=== PATIENT | female | born 1985 | race Hispanic/Latino ===

== ENCOUNTER 2022-09-21 09:50 | Emergency (ER) | payer OTHER ==
[~2022-09-21] VITALS: Ht 154.9 cm; Wt 113.4 kg
[2022-09-21] MEDS ORDERED: ONDANSETRON ODT 4MG TAB SL ONE (11:30)
[2022-09-21] MEDS ORDERED: ACETAMINOPHEN WITH CODEINE 1 TAB TAB PO ONE (11:30)
[2022-09-21] MEDS ORDERED: ONDA4TAB10 PO (12:11)
[2022-09-21 12:35] VITALS: BP 144/78
== END 2022-09-21 12:34 | disposition home or self-care (01) ==
LOC: EDH 09:50
DX: J06.9 Acute upper respiratory infection, unspecified (principal); R11.0 Nausea; R50.9 Fever, unspecified; M79.10 Myalgia, unspecified site; Z20.822 Contact with and (suspected) exposure to COVID-19; Z98.890 Other specified postprocedural states
CPT/HCPCS: 99283; 87635; 87880; 87804 ×2; C9803

== ENCOUNTER 2023-07-30 17:41 | Inpatient (IN) | payer OTHER ==
[~2023-07-30] VITALS: Ht 154.9 cm; Wt 103.2 kg
[~2023-07-30 17:41] MED LIST: ONDA4TAB10 PO
[2023-07-30 18:56] LABS: BASOPHILS # (AUTO) 0.03 K/uL (0.00-0.20); BASOPHILS % (AUTO) 0.2 % (0.0-5.0); EOSINOPHILS # (AUTO) 0.03 K/uL (0.00-0.70); EOSINOPHILS % (AUTO) 0.2 % (0.0-8.0); HEMATOCRIT 43.2 % (36-48); IMMATURE GRANULOCYTE ABSOLUTE 0.04 K/uL (0-1); LYMPHOCYTES # (AUTO) 1.3 K/uL (1.0-4.8); LYMPHOCYTES % (AUTO) 9.4 % (21.0-51.0); MEAN CORPUSCULAR HEMOGLOBIN 30.6 pg (27.0-33.0); MEAN CORPUSCULAR VOLUME 89.8 fL (79-99); MONOCYTES # (AUTO) 0.8 K/uL (0.1-1.0); MONOCYTES % (AUTO) 5.6 % (3.0-13.0); NEUTROPHILS # (AUTO) 11.8 K/uL (1.8-7.7); NEUTROPHILS % (AUTO) 84.3 % (40.0-77.0); PLATELET COUNT (AUTO) 250 K/uL (130-400); RED BLOOD CELL COUNT(AUTO) 4.81 MIL/uL (4.00-5.50); RED CELL DISTRIBUTION WIDTH 13.1 % (11.0-15.5)
[2023-07-30 19:08] LABS: CREATININE 0.6 mg/dL (0.5-1.0); POTASSIUM 3.8 mmol/L (3.5-5.1)
[2023-07-30 19:12] LABS: ALBUMIN 3.3 g/dL (3.5-5.0); TOTAL PROTEIN, SERUM 7.4 g/dL (6.0-8.3)
[2023-07-30 19:22] LABS: INR <= 0.93 (0.85-1.15); PROTHROMBIN TIME 10.8 SEC (9.6-11.6)
[2023-07-30 19:23] LABS: PARTIAL THROMBOPLASTIN TIME 29.5 SEC (26.3-35.5)
[2023-07-31] MEDS ORDERED: MORPHINE 4 MG SYG IV PRN
[2023-07-31] MEDS ORDERED: DIPHENHYDRAMINE HCL 25 MG CAPSULE PO PRN
[2023-07-31] MEDS ORDERED: GUAIFENESIN-DM 200/20 MG 10 ML PO PRN
[2023-07-31] MEDS ORDERED: ACETAMINOPHEN 325 MG TAB PO PRN
[2023-07-31] MEDS ORDERED: ONDANSETRON 4MG INJ IV PRN
[2023-07-31] MEDS ORDERED: NITROGLYCERIN 0.4 MG SL TAB SL PRN
[2023-07-31] MEDS: METRONIDAZOLE 500MG/100ML BAG IV SCH (01:23)
[2023-07-31] MEDS: MORPHINE 2 MG SYG IVP ONE (01:23)
[2023-07-31] MEDS: 0.9%NACL 1000ML 1,000 ML IV SCH (01:23)
[2023-07-31] MEDS: ONDANSETRON 4MG INJ IVP ONE (01:24)
[2023-07-31] MEDS: LEVOFLOXACIN 500 MG/D5W 100 ML 100 ML IV SCH (02:49)
[2023-07-31] MEDS: MORPHINE 2 MG SYG IV PRN (06:05)
[2023-07-31] MEDS: FAMOTIDINE 20MG VIAL IV SCH (09:05)
[2023-07-31 09:30] VITALS: BP 123/69; PULSE 73; RESP 20
[2023-07-31] MEDS ORDERED: DICY20TA3 PO (09:40)
[2023-07-31] MEDS ORDERED: NAPR-1141 PO (09:40)
[2023-07-31] MEDS ORDERED: OMEP40CA21 PO (09:40)
[2023-07-31] MEDS ORDERED: METR-172 PO (09:40)
[2023-07-31 10:15] LABS: BASOPHILS # (AUTO) 0.02 K/uL (0.00-0.20); BASOPHILS % (AUTO) 0.2 % (0.0-5.0); EOSINOPHILS % (AUTO) 0.9 % (0.0-8.0); HEMATOCRIT 34.7 % (36-48); IMMATURE GRANULOCYTE ABSOLUTE 0.04 K/uL (0-1); LYMPHOCYTES # (AUTO) 1.7 K/uL (1.0-4.8); LYMPHOCYTES % (AUTO) 15.8 % (21.0-51.0); MEAN CORPUSCULAR HEMOGLOBIN 29.9 pg (27.0-33.0); MEAN CORPUSCULAR VOLUME 88.1 fL (79-99); MONOCYTES # (AUTO) 0.8 K/uL (0.1-1.0); MONOCYTES % (AUTO) 7.3 % (3.0-13.0); NEUTROPHILS # (AUTO) 8.3 K/uL (1.8-7.7); NEUTROPHILS % (AUTO) 75.4 % (40.0-77.0); PLATELET COUNT (AUTO) 184 K/uL (130-400); RED BLOOD CELL COUNT(AUTO) 3.94 MIL/uL (4.00-5.50); RED CELL DISTRIBUTION WIDTH 13.2 % (11.0-15.5)
[2023-07-31 10:25] LABS: ALBUMIN 2.5 g/dL (3.5-5.0); BILIRUBIN,TOTAL 1.1 mg/dL (0.2-1.0); CREATININE 0.6 mg/dL (0.5-1.0); POTASSIUM 3.6 mmol/L (3.5-5.1); TOTAL PROTEIN, SERUM 6.1 g/dL (6.0-8.3)
[2023-07-31 11:29] VITALS: BP 112/59; PULSE 67; RESP 18
[2023-07-31 11:41] LABS: ERYTHROCYTE SEDIMENTATION RATE 47 MM/HR (0-20)
[2023-07-31 12:24] LABS: ADD UA MICROSCOPIC YES; APPEARANCE,URINE CLEAR (CLEAR); BILIRUBIN,URINE NEGATIVE (NEGATIVE); COLOR,URINE YELLOW (YELLOW); GLUCOSE, URINE (UA) NEGATIVE (NEGATIVE); KETONES,URINE NEGATIVE (NEGATIVE); LEUKOCYTE ESTERASE ,URINE 75 Leu/uL (NEGATIVE); NITRATE,URINE NEGATIVE (NEGATIVE); OCCULT BLOOD,URINE LARGE (NEGATIVE); PROTEIN,URINE NEGATIVE (NEGATIVE); UROBILINOGEN,URINE 0.2 mg/dL (0.2-1.0)
[2023-07-31 12:27] LABS: HCG,QUALITATIVE URINE NEGATIVE (NEGATIVE)
[2023-07-31 12:32] LABS: MUCUS,URINE Few LPF (None Seen); SQUAMOUS EPITHELIAL CELL,UR Few /HPF (0-2)
[2023-07-31 12:34] LABS: BACTERIA,URINE Few /HPF (None Seen)
[2023-07-31 16:00] VITALS: BP 151/85; PULSE 79; RESP 18
[2023-07-31 19:00] VITALS: BP 122/63; PULSE 65; RESP 16
[2023-07-31 23:00] VITALS: BP 105/58; PULSE 81; RESP 14
[2023-08-01 03:00] VITALS: BP 114/49; PULSE 85; RESP 14
[2023-08-01] MEDS: MAG/ALUM/SIMETH 30 ML UDCUP PO PRN (05:30)
[2023-08-01 05:47] LABS: MEAN CORPUSCULAR HEMOGLOBIN 30.6 pg (27.0-33.0); MEAN CORPUSCULAR HGB CONC 33.7 g/dL (32.0-36.0); MEAN CORPUSCULAR VOLUME 90.9 fL (79-99); RED BLOOD CELL COUNT(AUTO) 3.85 MIL/uL (4.00-5.50); RED CELL DISTRIBUTION WIDTH 12.8 % (11.0-15.5); WHITE BLOOD COUNT (AUTO) 10.9 K/uL (4.8-10.8)
[2023-08-01 05:59] LABS: ALBUMIN 2.2 g/dL (3.5-5.0); BILIRUBIN,TOTAL 0.8 mg/dL (0.2-1.0); CREATININE 0.5 mg/dL (0.5-1.0); POTASSIUM 3.2 mmol/L (3.5-5.1); TOTAL PROTEIN, SERUM 5.8 g/dL (6.0-8.3)
[2023-08-01 08:00] VITALS: BP 138/86; PULSE 80; RESP 19; O2SAT 96
[2023-08-01] MEDS: POTASSIUM CHLORIDE 10MEQ/100ML 100 ML IV PRN (08:48)
[2023-08-01 12:00] VITALS: BP 98/60; PULSE 73; RESP 19
[2023-08-01 16:00] VITALS: BP 137/67; PULSE 69; RESP 19
[2023-08-01 20:00] VITALS: BP 136/73; PULSE 77; RESP 20; O2SAT 100
[2023-08-01] MEDS ORDERED: POTASSIUM CHLORIDE 10% ELIXIR 20 MEQ/15 ML UDCUP PO PRN (22:30)
[2023-08-02] VITALS: BP 105/46; PULSE 79; RESP 18
[2023-08-02 04:00] VITALS: BP 125/71; PULSE 71; RESP 19
[2023-08-02 04:22] LABS: MAGNESIUM 1.6 mg/dL (1.80-2.40); POTASSIUM 3.5 mmol/L (3.5-5.1)
[2023-08-02] MEDS: KCL 20 MEQ ERTAB PO PRN (05:26)
[2023-08-02] MEDS: MAGNESIUM 2GM PREMIX 50ML 50 ML IV PRN (05:26)
[2023-08-02 08:00] VITALS: BP 115/66; PULSE 84; RESP 17; O2SAT 97
[2023-08-02] MEDS ORDERED: AMOX-426 PO (09:48)
[2023-08-02] MEDS ORDERED: OMEP40CA21 PO (09:48)
[2023-08-02 10:07] LABS: HEMATOCRIT 34.4 % (36-48); MEAN CORPUSCULAR HEMOGLOBIN 30.3 pg (27.0-33.0); MEAN CORPUSCULAR HGB CONC 33.7 g/dL (32.0-36.0); MEAN CORPUSCULAR VOLUME 89.8 fL (79-99); RED BLOOD CELL COUNT(AUTO) 3.83 MIL/uL (4.00-5.50); RED CELL DISTRIBUTION WIDTH 12.8 % (11.0-15.5); WHITE BLOOD COUNT (AUTO) 8.5 K/uL (4.8-10.8)
[2023-08-02 11:10] LABS: CREATININE 0.6 mg/dL (0.5-1.0); POTASSIUM 4.2 mmol/L (3.5-5.1)
== END 2023-08-02 13:05 | disposition home or self-care (01) | DRG 872 ==
LOC: EDH 17:41 → EDHIP 17:42 → 3BH 07-31 08:21
PROVIDERS: ADMIT Hospitalist; ATTEND Hospitalist
DX: A41.89 Other specified sepsis (principal); K57.20 Diverticulitis of large intestine with perforation and abscess without bleeding; Z68.41 Body mass index [BMI] 40.0-44.9, adult; E66.9 Obesity, unspecified; E87.6 Hypokalemia; K59.00 Constipation, unspecified; Z98.891 History of uterine scar from previous surgery; Z79.899 Other long term (current) drug therapy
CPT/HCPCS: 36415; 74176; 76705; 80048; 80053; 81001; 81025; 83605; 83690; 83735; 84132; 84145; 84484; 84703; 85025; 85027; 85610; 85651; 85730; 86140; 87040; 87077; 87088; 87186; G0378; J1956; J2270; J2405; J3475; J3480; J3490

== ENCOUNTER 2025-01-26 02:19 | Emergency (ER) | payer SELFPAY ==
[~2025-01-26] VITALS: Ht 154.9 cm; Wt 111.1 kg
[~2025-01-26 02:19] MED LIST changes: +AMOX-426 PO; +DICY20TA3 PO; +OMEP40CA21 PO; -ONDA4TAB10 PO
[2025-01-26] MEDS: FAMOTIDINE 20MG VIAL IV ONE (03:02)
[2025-01-26 03:19] LABS: IMMATURE GRANULOCYTE ABSOLUTE 0.03 K/uL (0-1); NUCLEATED RED BLOOD CELLS 0.0 % (0.0-0.19); PLATELET COUNT (AUTO) 247 K/uL (130-400); RED BLOOD CELL COUNT(AUTO) 5.51 MIL/uL (4.00-5.50); RED CELL DISTRIBUTION WIDTH 13.5 % (11.0-15.5); WHITE BLOOD COUNT (AUTO) 9.4 K/uL (4.8-10.8)
[2025-01-26 03:31] LABS: CREATININE 0.6 mg/dL (0.5-1.0); GLOMERULAR FILTR. RATE CALC 116.0 mL/min (>90); GLUCOSE,RANDOM 100.0 mg/dL (70-105); SODIUM SERUM 137.0 mmol/L (136-145); UREA NITROGEN, BLOOD 7.0 mg/dL (7-18)
[2025-01-26 03:35] LABS: ASPARTATE AMINOTRANSFERASE 40.0 U/L (10-37); TOTAL PROTEIN, SERUM 6.7 g/dL (6.0-8.3)
[2025-01-26] MEDS ORDERED: ONDA-243 PO (05:49)
--- NOTE | 2025-01-26 05:49 | ERN ---
General Chief Complaint: Nausea,Vomiting,Diarrhea Stated Complaint: C/O N X V AFTER INJECTING 2MG OF OZEMPIC Time Seen by MD: 02:36 History of Present Illness Initial Comments 39-year-old female came in for abdominal pain. Allergies: Coded Allergies: No Known Allergies (Unverified Allergy, Unknown, 09/21/22) Home Meds Active Scripts Amoxicillin/Potassium Clav (Augmentin 500-125 Tablet) 500 Mg-125 Mg Tablet, 1 EACH PO Q12H, #28 TAB 0 Refills Prov:BECCA CEDEÑOP 08/02/23 Omeprazole (Omeprazole) 40 Mg Capsule.dr, 40 MG PO DAILY, #30 CAP 0 Refills Prov:BECCA CEDEÑO 08/02/23 Reported Medications Dicyclomine HCl (Dicyclomine HCl) 20 Mg Tablet, 20 MG PO BID, TAB 07/31/23 Past Medical History Past Medical History: No Pertinent History Past Surgical History: Family History Family History: DM Social History Social History: Lives with family, Other Female( History) LMP: Jan 05, 2025 ROS Dictation Abdominal pain Physical Exam General Appearance: (+) no apparent distress, (+) apparent distress Respiratory: (+) chest non-tender, (+) lungs clear Heart: (+) regular, (+) no gallop Gastrointestinal: (+) soft, (+) non-tender, (+) no organomegaly, (+) bowel sound present Results Laboratory and Microbiology Lab and Micro Result Laboratory Tests Test 01/26/25 03:02 White Blood Count 9.4 K/uL (4.8-10.8) Red Blood Count 5.51 MIL/uL (4.00-5.50) H Hemoglobin 16.0 g/dL (12.0-16.0) Hematocrit 47.4 % (36-48) Mean Corpuscular Volume 86.0 fL (79-99) Mean Corpuscular Hemoglobin 29.0 pg (27.0-33.0) Mean Corpuscular Hemoglobin Concent 33.8 g/dL (32.0-36.0) Red Cell Distribution Width 13.5 % (11.0-15.5) Platelet Count 247 K/uL (130-400) Mean Platelet Volume 10.4 fL (7.5-10.5) Immature Granulocyte % (Auto) 0.3 % (0-1) Neutrophils (%) (Auto) 66.7 % (40.0-77.0) Lymphocytes (%) (Auto) 20.7 % (21.0-51.0) L Monocytes (%) (Auto) 8.4 % (3.0-13.0) Eosinophils (%) (Auto) 3.4 % (0.0-8.0) Basophils (%) (Auto) 0.5 % (0.0-5.0) Neutrophils # (Auto) 6.2 K/uL (1.8-7.7) Lymphocytes # (Auto) 1.9 K/uL (1.0-4.8) Monocytes # (Auto) 0.8 K/uL (0.1-1.0) Eosinophils # (Auto) 0.32 K/uL (0.00-0.70) Basophils # (Auto) 0.05 K/uL (0.00-0.20) Absolute Immature Granulocyte (auto 0.03 K/uL (0-1) Nucleated Red Blood Cells 0.0 % (0.0-0.19) Sodium Level 137 mmol/L (136-145) Potassium Level 3.8 mmol/L (3.5-5.1) Chloride Level 104 mmol/L (101-111) Carbon Dioxide Level 26 mmol/L (21-32) Blood Urea Nitrogen 7 mg/dL (7-18) Creatinine 0.6 mg/dL (0.5-1.0) Glomerular Filtration Rate Calc 116 mL/min (>90) Random Glucose 100 mg/dL (70-105) Lactic Acid Level 1.3 mmol/L (0.8-2.5) Total Calcium 8.4 mg/dL (8.5-10.1) L Total Bilirubin 1.5 mg/dL (0.2-1.0) H Direct Bilirubin 0.3 mg/dL (0.0-0.3) Aspartate Amino Transf (AST/SGOT) 40 U/L (10-37) H Alanine Aminotransferase (ALT/SGPT) 56 U/L (12-78) Alkaline Phosphatase 71 U/L (50-136) Total Protein 6.7 g/dL (6.0-8.3) Albumin 3.4 g/dL (3.5-5.0) L Lipase 21 U/L (16-77) Procalcitonin < 0.05 ng/mL (0.05-0.5) L Serum Test, Qualitative NEGATIVE (NEGATIVE) MDM MDM: Differential diagnosis: Rationale: Tests considered and ordered secondary to shared decision making include: Previous outside records reviewed: Old ER visits. Risk of complication and/or morbidity or mortality of patient management: None Medications-Per medication reconciliation Need for hospitalization: Patient does not meet criteria for hospitalization. Need for emergency major/minor surgery: No There are no social concerns with this patient. Prescription drug management Prescriptions will include symptomatic care Patient's prior external medical records from other ER visits were reviewed by me as indicated. Prior testing and results from previous visits were reviewed. Prior tests were taken into account with medical decision making and resource utilization, independent historian/historians were used to obtain complete medical history. I independently interpreted the test that were performed, results were reviewed by me and considered findings on radiology if ordered. Medical management and examination interpretation discussions were had by me with other qualified healthcare professionals as indicated for the patient's care. ED Course Orders Procedure Category Date Status Time Cbc With Differential LAB 01/26/25 Complete 02:36 Basic Metabolic Panel LAB 01/26/25 Complete 02:36 Hepatic Function Panel LAB 01/26/25 Complete 02:36 Lactic Acid LAB 01/26/25 Complete 02:36 Lipase LAB 01/26/25 Complete 02:36 Procalcitonin LAB 01/26/25 Complete 02:36 Urinalysis LAB 01/26/25 Logged W/Microscopic 02:36 ,Urine Test LAB 01/26/25 Logged 02:36 Testing, LAB 01/26/25 Complete Serum Hcg 02:36 Ondansetron 4mg Inj PHA 01/26/25 Complete (Zofran 4mg Inj) 03:00 Famotidine 20mg Vial PHA 01/26/25 Complete (Pepcid 20mg Vial) 03:00 Morphine 2mg Syg PHA 01/26/25 Complete (Morphine 2mg Syg) 03:00 Current Medications Medications (Trade) Dose Ordered Sig/Pako Route PRN Reason Start Time Stop Time Status Last Admin Dose Admin Famotidine (Pepcid 20mg Vial) 20 mg ONCE ONCE IV 01/26/25 03:00 01/26/25 03:01 DC 01/26/25 03:02 Morphine Sulfate (morPHINE 2MG SYG) 2 mg ONCE ONCE IVP 01/26/25 03:00 01/26/25 03:01 DC 01/26/25 03:02 Ondansetron HCl (zoFRAN 4MG INJ) 4 mg ONCE ONCE IVP 01/26/25 03:00 01/26/25 03:01 DC 01/26/25 03:02 Vital Signs Date Time Temp Pulse Resp B/P (MAP) Pulse Ox O2 Delivery O2 Flow Rate FiO2 01/26/25 03:04 98.4 88 18 132/66 98 Room Air* 0 21 01/26/25 02:22 97.5 82 20 134/83 96 Room Air DX & DISP Disposition: Discharge Departure Impression: Primary Impression: Abdominal pain Condition: Stable Scripts Ondansetron (Ondansetron Odt) 4 Mg Tab.rapdis 4 MG PO BID for 5 Days, #10 TAB Prov: ZEUS KAISER MD 01/26/25 Referrals: Marcellus BOWMAN MD (PCP) ZEUS KAISER MD Jan 26, 2025 05:49
[2025-01-26 05:52] VITALS: BP 128/62; PULSE 82; RESP 18; TEMP 98.5; O2SAT 98
== END 2025-01-26 06:10 | disposition home or self-care (01) ==
LOC: EDH 02:19
DX: R10.9 Unspecified abdominal pain (principal); Z79.899 Other long term (current) drug therapy; Z98.890 Other specified postprocedural states
CPT/HCPCS: 99284; 96374; 96375; 80076; 80048; 84703; 83690; 85025; 83605; 36415; 84145; J1308; J2270; J2405